=== PATIENT | male | born 1965 | race Caucasian/White ===

== ENCOUNTER 2020-02-21 13:21 | Inpatient (IN) | payer OTHER ==
--- NOTE | 2020-02-21 14:17 | BHS.RME ---
Substance Use & Tx History - Substance Use History Alcohol Substance amount: 4 x 24 ounce beer Frequency of use: Daily Substance route: Oral Date of Last Use: 02/21/20 Heroin Substance amount: $10 Frequency of use: Less than 3 times per week Substance route: Inhalation (ex: sniffing or snorting) Date of Last Use: 02/14/20 Cocaine-Crack Substance amount: $85 Frequency of use: Daily Substance route: Smoking Date of Last Use: 02/19/20 PCP Substance amount: one vial found on ground Frequency of use: Once a month Substance route: Smoking Date of Last Use: 02/19/20 Other Opiates/Synthetics Substance amount: Tylenol with Codeine #3 Frequency of use: Less than 3 times per week Substance route: Oral Date of Last Use: 02/14/20 OxyContin Substance amount: one tab Frequency of use: Less than 3 times per week Substance route: Oral Date of Last Use: 02/14/20 Nicotine Substance amount: one pack Frequency of use: Daily Substance route: Smoking Date of Last Use: 02/21/20 - Last Treatment Date of last treatment: one month ago [facility] Treatment type: Substance Use Disorder (SOPHIA) Where was last treatment: Detox Physical/Psych/Mental Status - Behavior General Behavior: Increased activity (restlessness, agitation) Eye Contact: Normal - Cooperativeness Cooperativeness: Cooperative - Thinking Thought Processes: Tight Thought content: Future oriented - Physical Health Problems Is patient presently having any pain?: Yes (chronic low back pain, foot pain for 3 days, left MCP joint pain told gangl) Does patient presently have any injuries (include location): No Does patient currently have a fever: No COWS - Scale Resting Pulse: 4= FL > 121 Sweatin= Beads of Sweat on Face Restless Observation: 3= Extraneous Movement Pupil Size: 1= Pupils >than Normal Bone or Joint Aches: 1= Mild Discomfort Runny Nose/ Eye Tearin= Nasal Congestion GI Upset > 30mins: 1= Stomach Cramp Tremor Observation: 4= Gross Tremor/Twitching Yawning Observation: 0= None Anxiety or Irritability: 1=Feels Anxious/Irritable Goose Flesh Skin: 0=Smooth Skin COWS Score: 19 CIWA Nausea/Vomitin Muscle Tremors: 4-Moderate,w/Arms Extend Anxiety: 3 Agitation: 1-Slight > Activity Paroxysmal Sweats: 4-Forehead w/Sweat Beads Orientation: 0-Oriented Tacttile Disturbances: 0-None Auditory Disturbances: 0-None Visual Disturbances: 0-None Headache: 1-Very Mild CIWA-Ar Total Score: 16
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
[2020-02-21 15:17] VITALS: BMI 23.9
[2020-02-21] MEDS ORDERED: METHOCARBAMOL 500 MG TABLET PO PRN (16:03)
[2020-02-21] MEDS ORDERED: MENTHOL/PHENOL 1 EACH UD MM PRN (16:03)
[2020-02-21] MEDS ORDERED: MAGNESIUM CITRATE 300 ML BOTTLE PO PRN (16:03)
[2020-02-21] MEDS ORDERED: NICOTINE POLACRILEX 2 MG GUM BUC PRN (16:03)
[2020-02-21] MEDS ORDERED: BISMUTH SUBSALICYLATE 524 MG/30 ML UD PO PRN (16:03)
[2020-02-21] MEDS ORDERED: MAGNESIUM HYDROX 2400MG/30ML ORAL SUSPENSION 30 ML CUP PO PRN (16:03)
[2020-02-21] MEDS ORDERED: MAG HYDROX/AL HYDROX/SIMETH 30 ML UNIT-DOSE CUP PO PRN (16:03)
[2020-02-21] MEDS ORDERED: ACETAMINOPHEN 325 MG TABLET (FP) PO PRN ×2 (16:03)
[2020-02-21] MEDS ORDERED: LORazepam 1 MG TABLET PO PRN (16:05)
[2020-02-21] MEDS ORDERED: ONDANSETRON *ODT* 4 MG TABLET SL ONE (16:15)
[2020-02-21] MEDS: IBUPROFEN 400 MG TABLET (FP) PO PRN (18:13)
[2020-02-21] MEDS: LORazepam 2 MG TABLET PO SCH ×2 (18:15→23:10)
[2020-02-21] MEDS: hydrOXYzine PAMOATE 25 MG CAPSULE (FP) PO SCH ×2 (18:15→23:09)
[2020-02-21] MEDS: PRENATAL VITAMINS W/ FOLIC ACID TABLET (FP) PO SCH (18:18)
[2020-02-21] MEDS: NICOTINE 7 MG/24 HOURS TOPICAL PATCH TD SCH (18:23)
[2020-02-21] MEDS: THIAMINE HCL 100 MG TABLET (FP) PO SCH (23:09)
[2020-02-21] MEDS: MELATONIN 5 MG TABLETS PO SCH (23:09)
[2020-02-22] MEDS: hydrOXYzine PAMOATE 25 MG CAPSULE (FP) PO SCH ×5 (06:40→22:09)
[2020-02-22] MEDS: LORazepam 2 MG TABLET PO SCH ×4 (06:40→22:09)
[2020-02-22] MEDS: IBUPROFEN 400 MG TABLET (FP) PO PRN ×2 (06:40→18:29)
--- NOTE | 2020-02-22 07:50 | PN ---
[facility] Progress Note Note: Patient is very confused. He is going into other patient's room, climbing up the window sill and he ambulates with unsteady gait Vital Signs Temperature 97.3 F L 02/22/20 05:03 Pulse Rate 81 02/22/20 05:03 Respiratory Rate 18 02/22/20 05:03 Blood Pressure 128/84 02/22/20 05:03 O2 Sat by Pulse Oximetry (%) 97 02/22/20 05:03 Action: Ammonia level ordered 1:1 constant observation for safety. Floor provider to reevaluate patient. F/U with psych. evaluation
[2020-02-22 10:22] LABS: HEMATOCRIT 41.6 % (35.4-49); HEMOGLOBIN 13.8 GM/dL (11.7-16.9); MCH 31.2 pg (25.7-33.7); MCHC 33.3 g/dl (32.0-35.9); MEAN CELL VOLUME 93.7 fl (80-96); MEAN PLT VOLUME 10.2 fl (7.5-11.1); PLATELET COUNT 227 K/MM3 (134-434); RBC 4.44 M/mm3 (4.00-5.60); WHITE BLOOD COUNT 7.3 K/mm3 (4.0-10.0)
[2020-02-22 10:32] LABS: ALBUMIN 4.2 g/dl (3.4-5.0); BILIRUBIN,DIRECT 0.2 mg/dL (0.0-0.2); BILIRUBIN,TOTAL 0.9 mg/dL (0.2-1); BLOOD UREA NITROGEN 11.4 mg/dL (7-18); CALCIUM 9.2 mg/dL (8.5-10.1); POTASSIUM 3.8 mmol/L (3.5-5.1); TOT PROT 7.6 g/dl (6.4-8.2)
[2020-02-22] MEDS: NICOTINE 7 MG/24 HOURS TOPICAL PATCH TD SCH (10:57)
[2020-02-22] MEDS: PRENATAL VITAMINS W/ FOLIC ACID TABLET (FP) PO SCH (10:57)
--- NOTE | 2020-02-22 11:20 | EKG ---
Test Reason : Blood Pressure : / mmHG Vent. Rate : 107 BPM Atrial Rate : 107 BPM P-R Int : 130 ms QRS Dur : 092 ms QT Int : 346 ms P-R-T Axes : 076 077 077 degrees QTc Int : 461 ms SINUS TACHYCARDIA OTHERWISE NORMAL ECG NO PREVIOUS ECGS AVAILABLE Confirmed by ROXANNE MORTON MD ([id number]) on 02/22/2020 11:20:04 AM Referred By: Confirmed By:ROXANNE MORTON MD
--- NOTE | 2020-02-22 11:52 | PN ---
[facility] Progress Note Note: Psychiatry Attending's note : Bedside visit. Patient found asleep. Currently under constant observation. For medical issues : confusion, hyperammonemia. Behavioral concerns as well : wandering erratically. As reported in nursing progress notes. Appreciated. Noted nursing project coordinator sitting at bedside (1:1 watch). Psychiatry-liaison will follow. Ammonia level = 57.70 (02/22/20).
--- NOTE | 2020-02-22 13:52 | PN ---
Teaching Attending Note Name of Resident: Rogelio Quispe ATTENDING PHYSICIAN STATEMENT I saw and evaluated the patient. I reviewed the resident's note and discussed the case with the resident. I agree with the resident's findings and plan as documented. SUBJECTIVE: Agree with resident's subjective findings OBJECTIVE: Agree with resident's objective findings. ASSESSMENT AND PLAN: Agree with detox plans
--- NOTE | 2020-02-22 13:52 | PN ---
[facility] CIWA - CIWA Score Nausea/Vomitin-Mild Nausea/No Vomiting Muscle Tremors: 2 Anxiety: 2 Agitation: 2 Paroxysmal Sweats: No Perspiration Orientation: 0-Oriented Tacttile Disturbances: 1-Very Mild Itch/Numbness Auditory Disturbances: 0-None Visual Disturbances: 0-None Headache: 1-Very Mild CIWA-Ar Total Score: 9 S Progress Note (SOAP) Subjective: alert,oriented x 3,had episode of confusion last,night stated he is homeless,on one and one Objective: 02/22/20 13:50 Vital Signs Temperature 97.3 F L 02/22/20 12:35 Pulse Rate 100 H 02/22/20 12:35 Respiratory Rate 18 02/22/20 12:35 Blood Pressure 127/72 02/22/20 12:35 O2 Sat by Pulse Oximetry (%) 95 02/22/20 12:35 02/22/20 13:51 Laboratory Last Values WBC 7.3 K/mm3 (4.0-10.0) 02/22/20 08:15 RBC 4.44 M/mm3 (4.00-5.60) 02/22/20 08:15 Hgb 13.8 GM/dL (11.7-16.9) 02/22/20 08:15 Hct 41.6 % (35.4-49) 02/22/20 08:15 MCV 93.7 fl (80-96) 02/22/20 08:15 MCH 31.2 pg (25.7-33.7) 02/22/20 08:15 MCHC 33.3 g/dl (32.0-35.9) 02/22/20 08:15 RDW 14.0 % (11.9-15.9) 02/22/20 08:15 Plt Count 227 K/MM3 (134-434) 02/22/20 08:15 MPV 10.2 fl (7.5-11.1) 02/22/20 08:15 Sodium 141 mmol/L (136-145) 02/22/20 08:15 Potassium 3.8 mmol/L (3.5-5.1) 02/22/20 08:15 Chloride 106 mmol/L (98-107) 02/22/20 08:15 Carbon Dioxide 25 mmol/L (21-32) 02/22/20 08:15 Anion Gap 9 MMOL/L (8-16) 02/22/20 08:15 BUN 11.4 mg/dL (7-18) 02/22/20 08:15 Creatinine 1.0 mg/dL (0.55-1.3) 02/22/20 08:15 Est GFR (CKD-EPI)AfAm 99.85 02/22/20 08:15 Est GFR (CKD-EPI)NonAf 86.15 02/22/20 08:15 Random Glucose 85 mg/dL (74-106) 02/22/20 08:15 Hemoglobin A1c % 5.6 % (4.2-6.3) 02/22/20 08:15 Calcium 9.2 mg/dL (8.5-10.1) 02/22/20 08:15 Total Bilirubin 0.9 mg/dL (0.2-1) 02/22/20 08:15 Direct Bilirubin 0.2 mg/dL (0.0-0.2) 02/22/20 08:15 AST 27 U/L (15-37) 02/22/20 08:15 ALT 32 U/L (13-61) 02/22/20 08:15 Alkaline Phosphatase 65 U/L (45-117) 02/22/20 08:15 Ammonia 57.70 umol/L (11-32) H 02/22/20 08:15 Total Protein 7.6 g/dl (6.4-8.2) 02/22/20 08:15 Albumin 4.2 g/dl (3.4-5.0) 02/22/20 08:15 Syphilis Serology Non-reactive (NONREACTIVE) 02/22/20 08:15 Assessment: 02/22/20 13:51 withdrawal symptom Plan: continue detox ativan regimen,lactulose 20 grams po qid,continue one on one for patient's safety,psychiatric evaluation by dr Parker,repeat ammonia level in am
[2020-02-22] MEDS: LACTULOSE 20 GM/30 ML UDC (FOR ORAL USE ONLY) PO SCH ×3 (15:00→22:09)
--- NOTE | 2020-02-22 19:44 | PN ---
[facility] Progress Note Note: Psychiatry Attending's note : Third bedside visit. For psychiatric interview. Patient is found asleep. Resting comfortably. No distress. On 1:1 constant observation. tool room attendant at bedside. Examination deferred earlier. Patient was going to bathroom. Independently. No complaint offered. At the time. Consult will be done in AM. Maintain constant observation for safety.
--- NOTE | 2020-02-22 19:45 | PN ---
S Progress Note Note: Patient place on 1:1 yesterday for confuision. patient is alert all day today but w/ some episodes of agitation. Plan: Will d/c 1:1 Observation hourly. Notify Provider if patient becomes confused or begins to wander or have behavioral changes that would affect safety.
[2020-02-22] MEDS: THIAMINE HCL 100 MG TABLET (FP) PO SCH (22:09)
[2020-02-22] MEDS: MELATONIN 5 MG TABLETS PO SCH (22:09)
[2020-02-23] MEDS: LORazepam 1 MG TABLET PO SCH ×4 (05:51→22:52)
[2020-02-23] MEDS: hydrOXYzine PAMOATE 25 MG CAPSULE (FP) PO SCH ×5 (05:51→22:53)
[2020-02-23] MEDS: IBUPROFEN 400 MG TABLET (FP) PO PRN (05:52)
[2020-02-23] MEDS: PRENATAL VITAMINS W/ FOLIC ACID TABLET (FP) PO SCH (10:47)
[2020-02-23] MEDS: LACTULOSE 20 GM/30 ML UDC (FOR ORAL USE ONLY) PO SCH ×4 (10:47→22:52)
[2020-02-23] MEDS: NICOTINE 7 MG/24 HOURS TOPICAL PATCH TD SCH (10:48)
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
[2020-02-23] MEDS ORDERED: MASKS NR ONE (13:43)
--- NOTE | 2020-02-23 15:07 | PN ---
S CIWA - CIWA Score Nausea/Vomitin-No Nausea/No Vomiting Muscle Tremors: None Anxiety: 3 Agitation: 1-Slight > Activity Paroxysmal Sweats: 2 Orientation: 2-Disoriented Date<2 days Tacttile Disturbances: 2-Mild Itch/Numbness/Burn Auditory Disturbances: 0-None Visual Disturbances: 0-None Headache: 0-None Present CIWA-Ar Total Score: 10 BHS COWS - Scale Resting Pulse: 0= [place] 80 or Below Sweatin= Chills/Flushing Restless Observation: 0= Sits Still Pupil Size: 0= Normal to Room Light Bone or Joint Aches: 2= Severe Diffuse Aches Runny Nose/ Eye Tearin= None GI Upset > 30mins: 2= Nausea/Diarrhea Tremor Observation of Outstretched Hands: 2= Slight Tremor Visible Yawning Observation: 0= None Anxiety or Irritability: 2=Irritable/Anxious Goose Flesh Skin: 0=Smooth Skin COWS Score: 9 BHS Progress Note (SOAP) Subjective: Anxious, Tremors, Sweating, Anxious. Objective: Patient A & O X 2 (Uncertain About Current Day/Date). Patient Observed Ambulating on Detox Unit with assistance of a cane. In No Acute Distress. 02/23/20 14:57 Vital Signs Temperature 96.7 F L 02/23/20 13:00 Pulse Rate 64 02/23/20 13:00 Respiratory Rate 18 02/23/20 13:00 Blood Pressure 126/72 02/23/20 13:00 O2 Sat by Pulse Oximetry (%) 100 02/23/20 13:00 Laboratory Tests 02/21/20 02/22/20 02/22/20 17:00 08:15 08:15 WBC 7.3 RBC 4.44 Hgb 13.8 Hct 41.6 MCV 93.7 MCH 31.2 MCHC 33.3 RDW 14.0 Plt Count 227 MPV 10.2 Sodium Potassium Chloride Carbon Dioxide Anion Gap BUN Creatinine Est GFR (CKD-EPI)AfAm Est GFR (CKD-EPI)NonAf Random Glucose Hemoglobin A1c % Calcium Total Bilirubin Direct Bilirubin AST ALT Alkaline Phosphatase Ammonia Total Protein Albumin Syphilis Serology Non-reactive COVID-19 (MEGAN) Not detected HIV Ag/Ab Combo Qual 02/22/20 02/22/20 02/22/20 08:15 08:15 08:15 WBC RBC Hgb Hct MCV MCH MCHC RDW Plt Count MPV Sodium 141 Potassium 3.8 Chloride 106 Carbon Dioxide 25 Anion Gap 9 BUN 11.4 Creatinine 1.0 Est GFR (CKD-EPI)AfAm 99.85 Est GFR (CKD-EPI)NonAf 86.15 Random Glucose 85 Hemoglobin A1c % 5.6 Calcium 9.2 Total Bilirubin 0.9 Direct Bilirubin 0.2 AST 27 ALT 32 Alkaline Phosphatase 65 Ammonia 57.70 H Total Protein 7.6 Albumin 4.2 Syphilis Serology COVID-19 (MEGAN) HIV Ag/Ab Combo Qual 02/23/20 02/23/20 02/23/20 06:05 06:05 07:10 WBC RBC Hgb Hct MCV MCH MCHC RDW Plt Count MPV Sodium Potassium Chloride Carbon Dioxide Anion Gap BUN Creatinine Est GFR (CKD-EPI)AfAm Est GFR (CKD-EPI)NonAf Random Glucose Hemoglobin A1c % Calcium Total Bilirubin Direct Bilirubin AST ALT Alkaline Phosphatase Ammonia 59.00 H Total Protein Albumin Syphilis Serology Non-reactive COVID-19 (MEGAN) HIV Ag/Ab Combo Qual Negative Lab Results noted. Assessment: 02/23/20 14:58 WITHDRAWAL SYMPTOMS. HYPERAMMONEMIA. Plan: Continue Detox. Increase Daily Oral Water Intake. Patient previously maintained on 1:1 Continuous Observation for safety, due to difficulty with ambulation. At time of Medical Assessment in AM today, Patient visualized ambulating with cane, reporting mild discomfort in his feet (due to chronic condition). Patient A & O X 2 (uncertain about current day/date), but appears to be aware of surroundings and general environment. Patient evaluated by Psychiatrist, who found no Psychiatric reason for Patient to be further maintained on 1:1. 1:1 Continuous Observation status D/C'd. Patient transferred to room close to Nurses' Station for safety and closer monitoring. Wheelchair ordered for Patient to assist with movement on Detox Unit, if necessary. Ammonia level noted to be slightly increased on repeat assessment today (59.00). Current dosing schedule for Lactulose to be maintained for time being. Will re- check Ammonia level again tomorrow AM.
[2020-02-23] MEDS ORDERED: MIRTAZAPINE 15 MG TABLET (FP) PO SCH (22:00)
[2020-02-23] MEDS ORDERED: OLANZapine 7.5 MG TABLET PO SCH (22:00)
[2020-02-23] MEDS: MELATONIN 5 MG TABLETS PO SCH (22:52)
[2020-02-23] MEDS: THIAMINE HCL 100 MG TABLET (FP) PO SCH (22:53)
[2020-02-24] MEDS ORDERED: LORazepam 0.5 MG TABLET PO PRN
[2020-02-24] MEDS ORDERED: LORazepam 0.5 MG TABLET PO SCH (05:00)
[2020-02-24] MEDS: hydrOXYzine PAMOATE 25 MG CAPSULE (FP) PO SCH ×2 (06:03→09:42)
[2020-02-24 06:55] VITALS: PULSE 110
--- NOTE | 2020-02-24 09:18 | DS ---
[facility] Detox Discharge Summary Admission Date: 02/21/20 Discharge Date: 02/24/20 - History Present History: Alcohol Dependence, Opioid Dependence Additional Comments: 54 years old male admitted on 02/21/20 for alcohol withdrawal sx management treated with ativan detox regiment seen by psychiatrist nadine nevarezrexcurry remerorome and wellbutrin feeling better today prefers to leave the detox unit today that he will follow up with [facility] tomorrow alert oriented x 3 speech clearly coherently ambulating with cane slow steady cardiac s1s2 regular rhythm denies chest pain no shortness of breath Vital Signs - 24 hr 02/23/20 02/23/20 02/24/20 13:00 20:54 06:54 Temperature 96.7 F L 97.3 F L 97.8 F Pulse Rate 64 93 H 110 H Respiratory 18 18 16 Rate Blood Pressure 126/72 119/77 112/78 O2 Sat by Pulse 100 98 97 Oximetry (%) 02/24/20 09:20 Temperature 97.1 F L Pulse Rate 110 H Respiratory 18 Rate Blood Pressure 103/74 O2 Sat by Pulse 97 Oximetry (%) respiratory clear lung sounds bilaterally on auscultation skin warm and dry Pertinent Past History: time for discharge treatment team met with the patient discussing the benefits of ativan regiment completion - Physical Exam Results Vital Signs: Vital Signs Temperature 97.8 F 02/24/20 06:54 Pulse Rate 110 H 02/24/20 06:54 Respiratory Rate 16 02/24/20 06:54 Blood Pressure 112/78 02/24/20 06:54 O2 Sat by Pulse Oximetry (%) 97 02/24/20 06:54 Pertinent Admission Physical Exam Findings: alcohol withdrawal Laboratory Tests 02/21/20 02/22/20 02/22/20 17:00 08:15 08:15 WBC 7.3 RBC 4.44 Hgb 13.8 Hct 41.6 MCV 93.7 MCH 31.2 MCHC 33.3 RDW 14.0 Plt Count 227 MPV 10.2 Sodium Potassium Chloride Carbon Dioxide Anion Gap BUN Creatinine Est GFR (CKD-EPI)AfAm Est GFR (CKD-EPI)NonAf Random Glucose Hemoglobin A1c % Calcium Total Bilirubin Direct Bilirubin AST ALT Alkaline Phosphatase Ammonia Total Protein Albumin Syphilis Serology Non-reactive COVID-19 (MEGAN) Not detected HIV Ag/Ab Combo Qual 0702/22/20 02/22/20 08:15 08:15 08:15 WBC RBC Hgb Hct MCV MCH MCHC RDW Plt Count MPV Sodium 141 Potassium 3.8 Chloride 106 Carbon Dioxide 25 Anion Gap 9 BUN 11.4 Creatinine 1.0 Est GFR (CKD-EPI)AfAm 99.85 Est GFR (CKD-EPI)NonAf 86.15 Random Glucose 85 Hemoglobin A1c % 5.6 Calcium 9.2 Total Bilirubin 0.9 Direct Bilirubin 0.2 AST 27 ALT 32 Alkaline Phosphatase 65 Ammonia 57.70 H Total Protein 7.6 Albumin 4.2 Syphilis Serology COVID-19 (MEGAN) HIV Ag/Ab Combo Qual 02/23/20 02/23/20 02/23/20 06:05 06:05 07:10 WBC RBC Hgb Hct MCV MCH MCHC RDW Plt Count MPV Sodium Potassium Chloride Carbon Dioxide Anion Gap BUN Creatinine Est GFR (CKD-EPI)AfAm Est GFR (CKD-EPI)NonAf Random Glucose Hemoglobin A1c % Calcium Total Bilirubin Direct Bilirubin AST ALT Alkaline Phosphatase Ammonia 59.00 H Total Protein Albumin Syphilis Serology Non-reactive COVID-19 (MEGAN) HIV Ag/Ab Combo Qual Negative lab noted ammonia elevation continue lactulose pick pulling machine tender lactulose from pharmacy contineu 4 times daily follow up ammonia repeat at [facility] Course: Detox Protocol Followed, Detoxed Safely, Responded well, Di scharged Condition Good, Rehab Referral Accepted Patient has Accepted a Rehab Referral to: [facility] - Medication Discharge Medications: Ambulatory Orders Bupropion HCl [Wellbutrin Xl -] 300 mg PO DAILY 02/21/20 Mirtazapine [Remeron -] 15 mg PO HS 02/21/20 Olanzapine [Zyprexa -] 7.5 mg PO DAILY 02/21/20 Lactulose (Oral Use) [Cephulac -] 20 gm PO QID #1 [place] 02/24/20 - Diagnosis (1) Substance induced mood disorder Status: Suspected (2) Alcohol use disorder Status: Acute (3) Nicotine dependence Status: Acute Qualifiers: Nicotine product type: cigarettes Substance use status: in withdrawal Qualified Code(s): F17.213 - Nicotine dependence, cigarettes, with withdrawal (4) Serum ammonia increased Status: Chronic - AMA Did Patient Leave Against Medical Advice: No CIWA Score - CIWA Score Nausea/Vomitin-No Nausea/No Vomiting Muscle Tremors: None Anxiety: 3 Agitation: 1-Slight > Activity Paroxysmal Sweats: 1-Minimal Palms Moist Orientation: 0-Oriented Tacttile Disturbances: 1-Very Mild Itch/Numbness Auditory Disturbances: 0-None Visual Disturbances: 0-None Headache: 0-None Present CIWA-Ar Total Score: 6 COWS (PN) - Opiate Withdrawal Resting Pulse: 2= [place] 101-120 Sweatin= No chills or Flushing Restless Observation: 0= Sits Still Pupil Size: 0= Normal to Room Light Bone or Joint Aches: 1= Mild Discomfort Runny Nose/ Eye Tearin= None GI Upset > 30mins: 0= None Tremor Observation of Outstretched Hands: 1= Tremor [place], Not Seen Yawning Observation: 0= None Anxiety or Irritability: 1=Feels Anxious/Irritable Goose Flesh Skin: 0=Smooth Skin COWS Score: 5
[2020-02-24 09:22] VITALS: BP 103/74; TEMP 97.1
[2020-02-24] MEDS: NICOTINE 7 MG/24 HOURS TOPICAL PATCH TD SCH (09:42)
[2020-02-24] MEDS: PRENATAL VITAMINS W/ FOLIC ACID TABLET (FP) PO SCH (09:42)
[2020-02-24] MEDS: LACTULOSE 20 GM/30 ML UDC (FOR ORAL USE ONLY) PO SCH (09:44)
[2020-02-25] MEDS ORDERED: LORazepam 0.5 MG TABLET PO ONE (05:00)
== END 2020-02-24 09:55 | disposition home or self-care (01) | DRG 773 ==
LOC: YASAS 13:21 → Y3N 15:32
PROVIDERS: ADMIT Allergy & Immunology; ATTEND Allergy & Immunology
PROC: HZ2ZZZZ Detoxification Services for Substance Abuse Treatment (ICD-10-PCS; principal; 2020-02-21)
DX: F10.230 Alcohol dependence with withdrawal, uncomplicated (principal); F11.10 Opioid abuse, uncomplicated; F14.10 Cocaine abuse, uncomplicated; F15.10 Other stimulant abuse, uncomplicated; F16.10 Hallucinogen abuse, uncomplicated; F12.10 Cannabis abuse, uncomplicated; F17.210 Nicotine dependence, cigarettes, uncomplicated; F25.9 Schizoaffective disorder, unspecified; E72.20 Disorder of urea cycle metabolism, unspecified; K44.9 Diaphragmatic hernia without obstruction or gangrene; Z86.19 Personal history of other infectious and parasitic diseases; Z94.5 Skin transplant status; Z90.49 Acquired absence of other specified parts of digestive tract; Z98.890 Other specified postprocedural states; Z88.1 Allergy status to other antibiotic agents; Z88.8 Allergy status to other drugs, medicaments and biological substances
CPT/HCPCS: 36415; 80053; 80076; 82140; 83036; 85027; 86780; 86803; 87389; 93005; 93010; U0003